=== PATIENT | female | born 2005 | race Caucasian/White ===

== ENCOUNTER 2023-02-14 07:46 | Emergency (ER) | payer OTHER ==
[~2023-02-14] VITALS: Ht 160 cm; Wt 68.0 kg
[2023-02-14 08:08] VITALS: BP 122/88; PULSE 95; RESP 18; TEMP 97.5; O2SAT 98
[2023-02-14 08:31] VITALS: BP 122/88; PULSE 95; RESP 18; TEMP 97.5; O2SAT 98
[2023-02-14] MEDS ORDERED: EMLAC TP (09:21)
[2023-02-14] MEDS ORDERED: KETOROLAC 30 MG/ML VIAL IM ONE (09:40)
[2023-02-14 10:10] LABS: APPEARANCE,URINE CLEAR (CLEAR); BILIRUBIN,URINE NEGATIVE (NEGATIVE); BLOOD, URINE NEGATIVE (NEGATIVE); COLOR,URINE YELLOW (YELLOW); LEUKOCYTE ESTERASE ,URINE NEGATIVE (NEGATIVE); NITRITE, URINE NEGATIVE (NEGATIVE); PROTEIN,URINE NEGATIVE (NEGATIVE); UGLUCOSE NEGATIVE (NEGATIVE); UROBILINOGEN,URINE 0.2 EU/dL (0.2 - 1)
== END 2023-02-14 10:38 | disposition home or self-care (01) ==
LOC: MED 07:46
DX: R22.9 Localized swelling, mass and lump, unspecified (principal); Z88.0 Allergy status to penicillin; Z88.1 Allergy status to other antibiotic agents; Z79.899 Other long term (current) drug therapy
CPT/HCPCS: 81003; 81025; 96372; 99283; J1885